=== PATIENT | male | born 1990 | race African-American/Black ===

== ENCOUNTER 2018-06-30 18:44 | Emergency (ER) | payer SELFPAY ==
[2018-06-30] MEDS: DEXAMETHASONE 10 MG/ML 1 ML INJ IM (20:28)
== END 2018-06-30 20:33 | disposition home or self-care (01) ==
LOC: FTE 20:33
DX: J30.9 Allergic rhinitis, unspecified (principal); J45.901 Unspecified asthma with (acute) exacerbation
CPT/HCPCS: 96372; 99284-25